=== PATIENT | female | born 1980 | race Caucasian/White ===

== ENCOUNTER → 2019-12-12 13:51 | Outpatient (BNVA) | payer MEDICAID, SELFPAY | PROVIDERS: PCP Nurse Practitioner Family; Visit Provider Physician Assistant | DX: M17.11 Unilateral primary osteoarthritis, right knee (principal) | CPT/HCPCS: 20610; 99203 ==

== ENCOUNTER 2020-07-01 13:29 | Emergency (ER) | payer OTHER, MEDICAID, SELFPAY ==
[2020-07-01 13:54] VITALS: BP 138/72; PULSE 57; RESP 18; TEMP 36.7; O2SAT 95; BMI 53.3
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
--- NOTE | 2020-07-01 16:27 | PC.NURSE ---
PT WAS NOT IN ROOM FOR DISCHARGE PACKAGE
== END 2020-07-01 16:24 | disposition home or self-care (01) ==
PROVIDERS: Emergency Provider Emergency Medicine; PCP Nurse Practitioner Family
DX: S39.012A Strain of muscle, fascia and tendon of lower back, initial encounter (principal); V43.52XA Car driver injured in collision with other type car in traffic accident, initial encounter; Y93.89 Activity, other specified; Y92.414 Local residential or business street as the place of occurrence of the external cause; Y99.9 Unspecified external cause status
CPT/HCPCS: 99282; 99283

== ENCOUNTER 2020-09-03 15:52 | Emergency (ER) | payer OTHER, MEDICAID, SELFPAY ==
[2020-09-03 16:49] VITALS: BP 138/66; PULSE 54; RESP 18; TEMP 36.9; O2SAT 97; BMI 34.9
== END 2020-09-03 18:53 | disposition left against medical advice (07) ==
PROVIDERS: Emergency Provider Emergency Medicine; PCP Nurse Practitioner Family
DX: Z04.1 Encounter for examination and observation following transport accident (principal)
CPT/HCPCS: 99281; 99282

== ENCOUNTER 2020-11-18 07:54 | Outpatient (REF) | payer OTHER, MEDICAID, SELFPAY | END 2020-11-18 07:55 | disposition home or self-care (01) | LOC: HO.HOSX 07:54 | PROVIDERS: Visit Provider Physician Assistant | DX: Z13.89 Encounter for screening for other disorder (principal) ==

== ENCOUNTER 2020-11-25 09:16 | Outpatient (REF) | payer OTHER, MEDICAID, SELFPAY ==
--- NOTE | ~2020-11-25 | XR_ITS ---
EXAMINATION: XR HAND, LEFT CLINICAL INFORMATION: Pain COMPARISON: None TECHNIQUE: PA, lateral, and oblique views of the left hand. FINDINGS: Mild degenerative osteoarthritic changes involving primarily first carpometacarpal joint. Mild degenerative osteoarthritic changes of distal interphalangeal joints all fingers. No erosions. No dislocation. Bone alignments are satisfactory. XR/XR hand LT min 3V IMPRESSION: Mild DJD.
== END 2020-11-25 09:17 | disposition home or self-care (01) ==
LOC: HO.HOSX 09:16
PROVIDERS: Visit Provider Physician Assistant
DX: M25.342 Other instability, left hand (principal); R20.0 Anesthesia of skin; R20.2 Paresthesia of skin
CPT/HCPCS: 73130

== ENCOUNTER 2020-12-15 11:12 | Outpatient (REF) | payer MEDICAID, SELFPAY ==
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
== END 2020-12-15 11:13 | disposition home or self-care (01) ==
LOC: HO.MRI 11:12
PROVIDERS: Visit Provider Physician Assistant
DX: M25.342 Other instability, left hand (principal)
CPT/HCPCS: 73218

== ENCOUNTER 2020-12-30 09:40 | Outpatient (REF) | payer MEDICAID, SELFPAY ==
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
== END 2020-12-30 09:41 | disposition home or self-care (01) ==
LOC: HO.NEURO 09:40
PROVIDERS: PCP Nurse Practitioner Family; Visit Provider Physician Assistant
DX: R20.0 Anesthesia of skin (principal); R20.2 Paresthesia of skin
CPT/HCPCS: 95885; 95910

== ENCOUNTER → 2021-01-13 09:59 | Outpatient (BNVA) | payer MEDICAID, SELFPAY | PROVIDERS: PCP Nurse Practitioner Family; Visit Provider Physician Assistant | DX: G56.02 Carpal tunnel syndrome, left upper limb (principal) | CPT/HCPCS: 99212 ==

== ENCOUNTER 2021-01-28 09:55 | Day surgery (SDC) | payer MEDICAID, SELFPAY ==
[2021-01-28 10:23] VITALS: BMI 45.6
[2021-01-28 10:28] VITALS: BP 105/69; PULSE 55; RESP 16; TEMP 36.7; O2SAT 95
--- NOTE | 2021-01-28 12:50 | MHC.SHP ---
Pre-Procedural Eval Section A Date of Service: 01/28/21 The patient is an INPATIENT: No Changes since office visit: No Cold of Flu in the past 2 weeks, No New Medical Problems, No Changes in Medication and No Patient answered all questions The History & Physical has been completed within 30 days and I have reviewed it.: Yes Section B Chief Complaint: carpal tunnel Allergies: Allergies Allergy/AdvReac Type Severity Reaction Status Date / Time acetaminophen [From VICODIN] Allergy Unknown HIVES Verified 01/13/21 10:08 adhesive tape [Adhesive Tape] Allergy Unknown RASH Verified 01/13/21 10:08 codeine [CODEINE] Allergy Unknown SWELLING Verified 01/13/21 10:08 From REGLAN Allergy Unknown AGITATION Uncoded 11/28/19 16:55 From VICODIN Allergy Unknown HIVES Uncoded 11/28/19 16:55 Plan I have reviewed the history and physical and performed a pertinent physical examination on my patient. No changes have occurred unless specified.
--- NOTE | 2021-01-28 12:50 | W.PM.OPN ---
Operative Note Operative Note Date of Service: 01/28/21 Narrative: Preop diagnosis: 1. Left Carpal tunnel syndrome Postop diagnosis: same Procedure: 1. Left Carpal tunnel release Surgeon: Yessenia Crowder MD Anesthesia: local block using 1% lidocaine with epinephrine Findings: Thickened transverse carpal ligament. EBL: Less than 5 mL Specimens: None Complications: None Disposition: Brought to recovery room in stable condition Plan: Follow-up for 7-10 days for wound check and suture removal Indications: The patient is 40 years old, with left carpal tunnel syndrome that has been unresponsive to nonoperative management. The risks and benefits of operative treatment including but not limited to risk of damage to blood vessels, nerves, tendons, infection, persistent pain, persistent symptoms, or possible need for additional surgery were discussed with the patient and the patient wishes to proceed with surgery. Procedure: Once consent was obtained a local block was performed using a combination of 1% lidocaine with epinephrine. The patient was then brought back to the operating suite and placed on the operative table in supine position. A tourniquet was applied to the proximal aspect of the left upper extremity and the limb was prepped and draped in a standard surgical fashion. Once assured that we had a good block, a 1.5 cm longitudinal incision was made centered over the carpal tunnel. The incision was made through the skin to the subcutaneous tissues using a #15 blade. Dissection was made down to the level of the transverse carpal ligament with care being taken to protect the palmar cutaneous nerve. Once the transverse carpal ligament was clearly visualized, a longitudinal incision was made in the transverse carpal ligament 1st using a #15 blade, then using tenotomy scissors under direct visualization. Care was taken to look for and protect the motor branch of the median nerve when seen in this area. Once satisfied with our carpal tunnel release the wound was copiously irrigated with normal saline and hemostasis was obtained with a brief period of local pressure. The skin edges were reapproximated with some 5.0 nylon suture material and a sterile dressing was applied. The patient appears to have tolerated the procedure well and with no complications. All digits were well vascularized at the conclusion of the case.
[2021-01-28 13:22] VITALS: BP 111/51; PULSE 58; RESP 16; TEMP 36.1; O2SAT 97
== END 2021-01-28 13:30 | disposition home or self-care (01) ==
PROVIDERS: PCP Nurse Practitioner Family; Visit Provider Orthopaedic Surgery
PROC: (CPT 64721; principal; 2021-01-28 11:10)
DX: G56.02 Carpal tunnel syndrome, left upper limb (principal); J45.909 Unspecified asthma, uncomplicated; Z79.51 Long term (current) use of inhaled steroids; Z79.899 Other long term (current) drug therapy; Z88.8 Allergy status to other drugs, medicaments and biological substances; Z91.040 Latex allergy status; F17.210 Nicotine dependence, cigarettes, uncomplicated
CPT/HCPCS: 64721

== ENCOUNTER → 2021-02-10 14:53 | Outpatient (BNVA) | payer OTHER, MEDICAID, SELFPAY | PROVIDERS: PCP Nurse Practitioner Family; Visit Provider Orthopaedic Surgery | DX: G56.02 Carpal tunnel syndrome, left upper limb (principal); M79.645 Pain in left finger(s) | CPT/HCPCS: 99212 ==

== ENCOUNTER → 2021-02-17 15:00 | Outpatient (BNVA) | payer MEDICAID, SELFPAY | PROVIDERS: PCP Nurse Practitioner Family; Visit Provider Orthopaedic Surgery | DX: Z48.02 Encounter for removal of sutures (principal); Z87.39 Personal history of other diseases of the musculoskeletal system and connective tissue | CPT/HCPCS: 99212 ==

== ENCOUNTER → 2021-03-29 13:41 | Outpatient (BNVA) | payer MEDICAID, SELFPAY | PROVIDERS: PCP Nurse Practitioner Family; Visit Provider Advanced Practice Midwife ==

== ENCOUNTER 2021-08-17 07:24 | Outpatient (REF) | payer MEDICAID, SELFPAY | END 2021-08-17 07:25 | disposition home or self-care (01) | LOC: HO.HOSX 07:24 | PROVIDERS: Visit Provider Physician Assistant | DX: Z13.89 Encounter for screening for other disorder (principal) ==

== ENCOUNTER 2021-12-24 12:36 | Outpatient (REF) | payer MEDICAID, SELFPAY ==
--- NOTE | ~2021-12-24 | XR_ITS ---
EXAMINATION: XR SHOULDER, LEFT CLINICAL INFORMATION: Left shoulder pain COMPARISON: None TECHNIQUE: Three views of the left shoulder. FINDINGS: There is no evidence of acute fracture or dislocation of the left shoulder. There is a 4 mm calcified density seen just superior to the glenoid which may represent a calcified labral tear. Joint spaces maintained. No significant abnormality of the acromioclavicular joint is noted. There is no widening of the coracoclavicular space inferior acromial spur present. 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
== END 2021-12-24 12:37 | disposition home or self-care (01) ==
LOC: HO.HOSX 12:36
PROVIDERS: Visit Provider Physician Assistant
DX: M75.22 Bicipital tendinitis, left shoulder (principal); M75.82 Other shoulder lesions, left shoulder
CPT/HCPCS: 20610; 73030; 99212; J1040

== ENCOUNTER 2022-01-19 08:04 | Outpatient (REF) | payer MEDICAID, SELFPAY ==
--- NOTE | ~2022-01-19 | XR_ITS ---
EXAMINATION: X-RAY LEFT KNEE X-RAY BILATERAL STANDING KNEES CLINICAL INFORMATION: Pain. COMPARISON: Radiographs of the right knee 11/19/2019. TECHNIQUE: 2 views of the left knee. 1 AP standing view of both knees. FINDINGS: Uneven cortical appearance on the lateral view of the left tibial tuberosity, raising the possibility of an underlying fracture. No subluxation. Severe joint space narrowing of the medial and patellofemoral compartments of the left knee. Moderate joint space narrowing of the medial compartment of the right knee. Prominent marginal osteophytes on the lateral compartment of the right knee. No chondrocalcinosis. Moderate size left knee joint effusion. XR/XR knee standing BI IMPRESSION: 1. Uneven cortical appearance of the left tibial tuberosity, raising the possibility of an underlying fracture. Correlate for point tenderness. 2. Moderate size left knee joint effusion. 3. Severe degenerative osteoarthritis of the medial and patellofemoral compartments of the left knee.
--- NOTE | ~2022-01-19 | XR_ITS ---
EXAMINATION: X-RAY LEFT KNEE X-RAY BILATERAL STANDING KNEES CLINICAL INFORMATION: Pain. COMPARISON: Radiographs of the right knee 11/19/2019. TECHNIQUE: 2 views of the left knee. 1 AP standing view of both knees. FINDINGS: Uneven cortical appearance on the lateral view of the left tibial tuberosity, raising the possibility of an underlying fracture. No subluxation. Severe joint space narrowing of the medial and patellofemoral compartments of the left knee. Moderate joint space narrowing of the medial compartment of the right knee. Prominent marginal osteophytes on the lateral compartment of the right knee. No chondrocalcinosis. Moderate size left knee joint effusion. XR/XR knee LT 2V IMPRESSION: 1. Uneven cortical appearance of the left tibial tuberosity, raising the possibility of an underlying fracture. Correlate for point tenderness. 2. Moderate size left knee joint effusion. 3. Severe degenerative osteoarthritis of the medial and patellofemoral compartments of the left knee.
== END 2022-01-19 08:05 | disposition home or self-care (01) ==
LOC: HO.HOSX 08:04
PROVIDERS: Visit Provider Physician Assistant
DX: M17.12 Unilateral primary osteoarthritis, left knee (principal)
CPT/HCPCS: 20610; 73560; 73565; 99212; J1040

== ENCOUNTER 2022-02-16 10:39 | Outpatient (REF) | payer MEDICAID, SELFPAY | END 2022-02-16 10:40 | disposition home or self-care (01) | LOC: HO.HOSX 10:39 | PROVIDERS: PCP Nurse Practitioner Family; Visit Provider Physician Assistant | DX: M17.0 Bilateral primary osteoarthritis of knee (principal) | CPT/HCPCS: 20610; J7323 ==

== ENCOUNTER 2022-02-21 09:22 | Outpatient (REF) | payer MEDICAID, SELFPAY ==
--- NOTE | ~2022-02-21 | XR_ITS ---
EXAMINATION: XR HAND, RIGHT CLINICAL INFORMATION: Pain in right hand COMPARISON: 11/25/2020 TECHNIQUE: PA, lateral, and oblique views of the right hand. FINDINGS: No acute fracture or dislocation. Surgical and scarring of the first MCP. Mild narrowing of the radiocarpal and first CMC joints may reflect early osteoarthritis. XR/XR hand RT min 3V IMPRESSION: Surgical and scarring of the first MCP. Mild narrowing of the radiocarpal and first CMC joints may reflect early osteoarthritis.
== END 2022-02-21 09:23 | disposition home or self-care (01) ==
LOC: HO.HOSX 09:22
PROVIDERS: Visit Provider Orthopaedic Surgery
DX: M18.11 Unilateral primary osteoarthritis of first carpometacarpal joint, right hand (principal)
CPT/HCPCS: 73130; 99212

== ENCOUNTER → 2022-05-25 13:07 | Outpatient (BNVA) | payer MEDICAID, SELFPAY | PROVIDERS: PCP Nurse Practitioner Family; Visit Provider Physician Assistant | DX: M17.0 Bilateral primary osteoarthritis of knee (principal) | CPT/HCPCS: 20610; J7323 ==